=== PATIENT | male | born 1990 | race American Indian/Alaskan Native ===

== ENCOUNTER 2017-03-07 23:52 | Emergency (ER) | payer SELFPAY ==
[2017-03-08 01:10] VITALS: BP 140/94
== END 2017-03-08 01:30 | disposition left against medical advice (07) ==
LOC: ED 23:52
DX: S61.219A Laceration without foreign body of unspecified finger without damage to nail, initial encounter (principal); X58.XXXA Exposure to other specified factors, initial encounter; Y93.9 Activity, unspecified; Y92.89 Other specified places as the place of occurrence of the external cause; Y99.9 Unspecified external cause status; Z53.21 Procedure and treatment not carried out due to patient leaving prior to being seen by health care provider